=== PATIENT | female | born 1940 | race Caucasian/White ===

== ENCOUNTER 2019-01-26 14:33 | Outpatient (CLI) | payer MEDICARE ==
--- NOTE | 2019-01-26 14:56 | RAD ---
Exam: Abdomen 2 views COMPARISON: None HISTORY: Constipation FINDINGS: No pneumoperitoneum No evidence of bowel distention or dilatation. Copious amount fecal material in the colon does raise the possibility for constipation. Cholecystectomy clips in the right upper quadrant No suspicious densities in the abdomen and pelvis. No acute osseous abnormalities. IMPRESSION: Copious amount of fecal material, worrisome for constipation.
== END 2019-01-26 14:34 | disposition home or self-care (01) ==
LOC: RAD 14:33
PROVIDERS: ATTEND Internal Medicine Gastroenterology
DX: K59.00 Constipation, unspecified (principal)
CPT/HCPCS: 74019

== ENCOUNTER 2021-06-19 07:31 | Outpatient (CLI) | payer MEDICARE, BC | END 2021-06-19 07:32 | disposition home or self-care (01) | LOC: RAD 07:31 | PROVIDERS: ATTEND Internal Medicine Gastroenterology | DX: Q43.8 Other specified congenital malformations of intestine (principal) | CPT/HCPCS: 74280 ==